=== PATIENT | male | born 1975 | race Caucasian/White ===

== ENCOUNTER 2019-01-03 06:52 | Day surgery (SDC) | payer OTHER ==
--- NOTE | 2019-01-01 15:29 | EKG ---
Test Date: 2019-01-01 Test Time: 12:47:05 Director Of Plant Operations: [employer] MEASUREMENT RESULTS: Intervals: Rate: 85 SC: 156 QRSD: 102 QT: 362 QTc: 430 [place]: P: 33 SC: 156 QRS: 39 T: 28 INTERPRETIVE STATEMENTS: Normal sinus rhythm Normal ECG Compared to ECG 06/07/2017 08:08:27 No significant changes Electronically Signed On 01-01-19 15:28:29 CDT by Reji Aggarwal
[2019-01-03] MEDS ORDERED: NA CHLORIDE 0.9% 1,000 ML ONE (07:37)
[2019-01-03] MEDS ORDERED: EPINEPHRINE/PF 1 MG/ML AMP ONE (07:40)
[2019-01-03] MEDS ORDERED: OXYMETAZOLINE HCL 0.05% 15ML NAS ONE (07:40)
[2019-01-03] MEDS ORDERED: PROPOFOL 200 MG/20 ML VIAL IV ONE (07:55)
[2019-01-03] MEDS ORDERED: LIDOCAINE 2% MPF 5 ML VIAL ONE (07:56)
[2019-01-03] MEDS ORDERED: GLYCOPYRROLATE 0.2 MG/ML SYR ONE (07:56)
[2019-01-03] MEDS ORDERED: ROCURONIUM 50 MG/5 ML VIAL IV ONE (07:57)
[2019-01-03] MEDS ORDERED: FENTANYL CITR 250 MCG/5 ML ONE (07:57)
[2019-01-03] MEDS ORDERED: ONDANSETRON 4 MG/2 ML VIAL ONE (07:58)
[2019-01-03] MEDS ORDERED: LIDOCAINE 1% W/EPI 1:100,000 MDV 20 ML VIAL ONE (07:59)
[2019-01-03] MEDS ORDERED: SUCCINYLCHOLINE 20 MG/ML (10 ML) IV ONE ×2 (08:01→08:21)
[2019-01-03] MEDS ORDERED: NEOSTIGMINE 1 MG/ML -10 ML VIAL ONE (08:11)
[2019-01-03] MEDS ORDERED: MIDAZOLAM HCL 2 MG/2 ML INJ ONE ×2 (08:59→09:02)
[2019-01-03] MEDS ORDERED: ALBUTEROL 2.5 MG/3 ML NEB SOL ONE (09:21)
--- NOTE | 2019-01-03 21:31 | OP ---
Date of Procedure: 01/03/2019 Surgeon: uXan Dickey MD Preoperative Diagnosis: Right vocal cord lesion. Postoperative Diagnosis: Right vocal cord lesion, pathology pending. Procedure: Direct laryngoscopy with telescope and excision of vocal cord tumor. Indication For Procedure: Mr. Tineo presented to the ENT clinic with multiple complaints including dysphonia. A flexible laryngoscopy revealed a round reddish pedunculated appearing mass on the anterior third of the right vocal fold. The risks, benefits, and alternatives to the procedure were discussed with the patient and his . He agreed to proceed. Description Of Procedure: The patient was brought to the operating room. He was placed under general anesthesia via oral endotracheal tube. He was intubated successfully using the glide scope. During intubation, his epiglottis was noted to be somewhat U shaped. The patient had limited neck extension. A plastic tooth guard was placed on his upper dentition and the Brian-Berci laryngoscope was used to perform a direct laryngoscopy. The patient's anatomy was difficult to identify in terms of the posterior and piriform sinus due to the patient's body habitus, morbid obesity and collapse of soft tissues. The vocal cords were identified by following the path of the endotracheal tube. Once the vocal cords were identified, the laryngoscope was placed into suspension. The posterior aspect of the vocal cord and the interarytenoid area was obscured by the endotracheal tube. Frothy secretions were suctioned from the endotracheal tube and secretions were suctioned. The anterior aspect of the larynx was better visualized by manual pressure on the larynx externally. Photo documentation of the lesion was then obtained. A large up-biting cup forceps was used to grasp the lesion at its base and it was carefully removed. An epinephrine-soaked pledget was applied to the vocal cord for several minutes to aid in hemostasis. After removal, the area was suctioned and photodocumentation was made of the left vocal cord at the prior site of the tumor. There was no gross residual tumor and the procedure was concluded. The laryngoscope was carefully removed. The mouth guard was removed and the patient was returned to care of Anesthesia for awakening and disposition. During awakening, the patient had significant coughing resulting in desaturations and he was lightly sedated to allow for better ventilation. The anesthesia staff opted to defer extubation to the PACU to allow resolution of sedation due to patient's high risk of obstruction and desaturation due to body habitus. MIKE/RUFUS Voice ID: [id number] Report ID: [id number] MTDOscar
== END 2019-01-03 11:30 | disposition home or self-care (01) ==
LOC: OR 06:52
PROVIDERS: ATTEND Otolaryngology
PROC: 0CBT8ZZ Excision of Right Vocal Cord, Via Natural or Artificial Opening Endoscopic (ICD-10-PCS; principal; 2019-01-03 08:15)
DX: J38.3 Other diseases of vocal cords (principal); E11.9 Type 2 diabetes mellitus without complications; I10 Essential (primary) hypertension; G47.33 Obstructive sleep apnea (adult) (pediatric); K21.9 Gastro-esophageal reflux disease without esophagitis; E78.00 Pure hypercholesterolemia, unspecified; E66.01 Morbid (severe) obesity due to excess calories; Z68.44 Body mass index [BMI] 60.0-69.9, adult; Z80.9 Family history of malignant neoplasm, unspecified; Z83.3 Family history of diabetes mellitus; Z82.49 Family history of ischemic heart disease and other diseases of the circulatory system
CPT/HCPCS: 93005; 82962; 88305; 31541; J2704; J2710; J0171; J0330; J2250 ×2; J3010; J7030; J2405

== ENCOUNTER 2020-09-08 10:44 | Emergency (ER) | payer SELFPAY ==
--- OUTSIDE RECORDS SUMMARY | 2020-09-08 10:48 | XMS REPORT | Continuity of Care Document ---
:1975 Author Organization [facility] t Address [address] [place] [address] Care Team Providers Name Role Phone Unavailable Unavailable Unavailable Payers Payer Name Policy Type Policy Number Effective Date Expiration Date S ource Problems This patient has no known problems. Allergies, Adverse Reactions, Alerts Allergy Allergy Status Severity Reaction(s) Onset Inactive Treating Comm ents Source Name Type Date Date Clinician No Known DA Active U [facility] 05-13 Allergie 00:00: s 00 No Known DA Active U [facility] Allergie 10-15 [facility] Medications Ordered Filled Start Stop Current Ordering Indication Dosage Frequency Signature Comments Components Source Medication Medication Date Date Medication? Clinician (SIG) Name Name Pantoprazol Pantoprazol Yes Kristin [address] [facility] Sodium e Sodium 6-15 Millender Manuela [facility] Meloxicam Meloxicam 2018- 2020- No Kristin [address] [facility] 1-14 08-10 [facility] Metoprolol Metoprolol Yes Kristin [address] [facility] Tartrate Tartrate Millender with food [facility] Pepcid Pepcid Yes Kristin not [facility] Millender defined [facility] Rosuvastati Rosuvastati Yes Kristin [address] [facility] n Calcium n Calcium Millender in evening [facility] Testosteron Testosteron Yes Kristin [address] [facility] Cypionate e Cypionate [facility]ender [facility] Testosteron Testosteron Yes Kristin INJECT 0.[address] [facility] e Cypionate e Cypionate Millender ML IN THE [facility] EVERY WEEK l [facility] Metformin Metformin Yes Kristin [address] [facility] HCl HCl Millender with a [facility] - meal [facility] Isosorbide Isosorbide Yes Kristin [address] [facility] Mononitrate Mononitrate Millender in the [facility] ER morning [facility] Lisinopril Lisinopril Yes Kristin [address] [facility] Millender [facility] Tramadol Tramadol 2019- No Kristin [address] HCl HCl 10-13 Millender as needed Luke s - 00:00 for pain [facility] :00 l [facility] Vital Signs Vital Name Observation Time Observation Value Comments Source 02 Sat by Pulse Oximetry 2020-05-20 11:27:37 96 /min BMI more than 35 2020-05-20 11:27:37 Y Body Mass Index 2020-05-20 11:27:37 62.7 Height 2020-05-20 11:27:37 180.34\S\71 Pulse Rate 2020-05-20 11:27:37 84 /min Respiratory Rate 2020-05-20 11:27:37 11 /min Weight 2020-05-20 11:27:37 052750.566\S\7200 02 Sat by Pulse Oximetry 2020-05-15 00:10:15 96 /min BMI more than 35 2020-05-15 00:10:15 Y Body Mass Index 2020-05-15 00:10:15 62.7 Height 2020-05-15 00:10:15 180.34\S\71 Pulse Rate 2020-05-15 00:10:15 84 /min Respiratory Rate 2020-05-15 00:10:15 11 /min Weight 2020-05-15 00:10:15 220438.566\S\7200 Body Mass Index 2020-05-14 08:37:43 62.7 Height 2020-05-14 08:37:43 180.34\S\71 Weight 2020-05-14 08:37:43 682345.566\S\7200 Body Mass Index 2020-05-14 07:11:43 62.7 Height 2020-05-14 07:11:43 180.34\S\71 Weight 2020-05-14 07:11:43 993944.566\S\7200 Body Mass Index 2020-05-14 07:03:32 62.7 Height 2020-05-14 07:03:32 180.34\S\71 Weight 2020-05-14 07:03:32 108291.566\S\7200 Body Mass Index 2020-05-14 07:00:28 62.7 Height 2020-05-14 07:00:28 180.34\S\71 Weight 2020-05-14 07:00:28 691217.566\S\7200 Body Mass Index 2020-05-14 05:57:42 62.7 Height 2020-05-14 05:57:42 180.34\S\71 Weight 2020-05-14 05:57:42 871938.566\S\7200 Body Mass Index 2020-05-13 16:05:48 62.7 Height 2020-05-13 16:05:48 180.34\S\71 Weight 2020-05-13 16:05:48 552528.566\S\7200 Body Mass Index 2020-05-13 16:05:17 62.7 Height 2020-05-13 16:05:17 180.34\S\71 Weight 2020-05-13 16:05:17 973771.566\S\7200 WEIGHT 2020-05-13 16:05:00 204.116844 kg HEIGHT 2020-05-13 16:05:00 180.34 cm Procedures This patient has no known procedures. Encounters Start End Encounter Admission Attending Care Care Encounter Source Date/Time Date/Time Type Type Clinicians Facility Department ID 2020-08-16 2020-08-16 [facility] [id number] 2020-07-19 2020-07-19 [facility] [id number] [facility] 2020-07-13 2020-07-13 [facility] [id number] [facility] 2020-06-21 2020-06-21 [facility] [id number] [facility] 2020-05-19 2020-05-19 [facility] [id number] [facility] 2020-05-06 2020-05-06 [facility] [id number] [facility] 2020-03-31 2020-03-31 [facility] [id number] [facility] 2020-03-22 2020-03-22 [facility] [id number] [facility] 2020-03-19 2020-03-19 [facility] [id number] [facility] 2020-03-15 2020-03-15 [facility] [id number] [facility] 2020-01-14 2020-01-14 Outpatient Miki Livingstont [id number] [facility] 08:59:00 08:59:00 [facility] 2019-10-20 2019-10-20 Outpatient Miki Nathan [id number] [facility] 22:06:00 22:06:00 [facility] 2019-10-20 2019-10-20 Outpatient Miki Livingstont [id number] [facility] [address] 09:40:00 09:40:00 [facility] Results Test Description Test Time Test Comments Results Result Comments Source TROPONIN I RAPID 2019-04-14 21:25:00 Test Item Value Reference Range Interpretation Comme nts TROPONIN I RAPID (test code = 0.00 ng/mL 0.00-0.08 N - The use of serial sampling and TROPIRAP) testing protoco l is a recommended pra ctice- An elevated tropon in level alone is often not suffi cient for diagnosis of my ocardial infarction. CBC W/AUTO [id number] 19:36:00 Test Item Value Reference Range Interpretation Comments WHITE BLOOD CELL (test 12.5 K/mm3 3.5-11.0 H code = WBC) RED BLOOD CELL (test 5.09 M/mm3 4.70-6.10 N code = RBC) HEMOGLOBIN (test code 13.2 G/DL 12.3-15.9 N = HGB) HEMATOCRIT (test code 41.2 % 35.8-46.7 N = HCT) MEAN CELL VOLUME (test 80.9 Fl 86.3-98.9 L code = MCV) MEAN CELL HGB (test 25.9 pg 28.9-34.4 L code = MCH) MEAN CELL HGB 32.0 G/DL 32.1-34.5 L CONCETRATION (test code = MCHC) RED CELL DISTRIBUTION 15.3 SD 11.5-14.5 H WIDTH (test code = RDW) PLATELET COUNT (test 315.0 K/mm3 150-450 N code = PLT) MEAN PLATELET VOLUME 10.90 fL 7.0-9.6 H (test code = MPV) NEUTROPHIL % (test 70.9 % 40-76 N code = NT%) LYMPHOCYTE % (test 20.2 % 20.5-51.1 L code = LY%) MONOCYTE % (test code 6.5 % 1.7-9.3 N = MO%) EOSINOPHIL % (test 2.2 % 0.0-6.0 N code = EO%) BASOPHIL % (test code 0.2 % 0.0-2.0 N = BA%) NEUTROPHIL # (test 8.89 K/mm3 1.8-7.6 H code = NT#) LYMPHOCYTE # (test 2.5 K/mm3 0.6-3.0 N code = LY#) MONOCYTE # (test code 0.8 K/mm3 0.2-1.5 N = MO#) EOSINOPHIL # (test 0.3 K/mm3 0.0-0.4 N code = EO#) BASOPHIL # (test code 0.0 K/mm3 0.0-0.2 N = BA#) MANUAL DIFF REQUIRED NO DIFF/SCN CRITERIA SLIDE R EVIEW (test code = MDIFF) CONSISTA NT WITH AUTO DIFFERENTIAL. COMPREHENSIVE METABOLIC [id number] 18:16:00 Test Item Value Reference Range Interpretation Comments SODIUM (test code = NA) 140 mmol/L 134-147 N POTASSIUM (test code = 3.7 mmol/L 3.4-5.0 N K) CHLORIDE (test code = 106 mmol/L 100-108 N CL) CARBON DIOXIDE (test 28 mmol/L 21-32 N code = CO2) ANION GAP (test code = 6.0 GAP calc 4.0-15.0 N GAP) GLUCOSE (test code = 86 MG/DL 70-110 N GLU) BLOOD UREA NITROGEN 11 MG/DL 7-18 N (test code = BUN) GLOMERULAR FILTRATION >=60 max estimate >60 RATE (test code = GFR) estGFR CREATININE (test code = 0.6 MG/DL 0.8-1.3 L CREAT) TOTAL PROTEIN (test code 7.7 G/DL 6.4-8.2 N = PROT) ALBUMIN (test code = 3.8 G/DL 3.4-5.0 N ALB) GLOBULIN (test code = 3.9 GM/dL GLOB) ALBUMIN/GLOBULIN RATIO 1.0 RATIO 1.2-2.2 L (test code = A/G) CALCIUM (test code = CA) 9.0 MG/DL 8.5-10.1 N BILIRUBIN TOTAL (test 0.50 MG/DL 0.2-1.2 N code = BILT) SGOT/AST (test code = 15 Unit/L 15-37 N AST) SGPT/ALT (test code = 29 Unit/L 12-78 N ALT) ALKALINE PHOSPHATASE 80 Unit/L 50-136 N TOTAL (test code = ALKP) RULE OUT KS [id number] 18:16:00 Test Item Value Reference Range Interpretation Comments CREATINE KINASE 122 Unit/L 26-192 N (CK) (test code = CK) TROPONIN-I (test < 0.015 NG/ML 0.000-0.045 N Negative: </= 0.045 code = TROPI) Positive: >/= 0.046 Correlation wit h serial results, other cardiac markers , and clinical findin gs is necessary to de termine the clinical significance of this result. Quantit ative results using different methodologies s hould not be compared to one another as nume rical results may ernesto yby method. NT PRO-BRAIN NATRIURETIC [id number] 18:16:00 Test Item Value Reference Range Interpretation Comments NT PRO-BRAIN NATRIURETIC PEPTI (test 53 PG/ML 0-100 N code = PROBNP) CBC W/AUTO [id number] 17:53:00 Test Item Value Reference Range Interpretation Comments WHITE BLOOD CELL (test code = 12.5 K/mm3 3.5-11.0 H WBC) RED BLOOD CELL (test code = RBC) 5.09 M/mm3 4.70-6.10 N HEMOGLOBIN (test code = HGB) 13.2 G/DL 12.3-15.9 N HEMATOCRIT (test code = HCT) 41.2 % 35.8-46.7 N MEAN CELL VOLUME (test code = 80.9 Fl 86.3-98.9 L MCV) MEAN CELL HGB (test code = MCH) 25.9 pg 28.9-34.4 L MEAN CELL HGB CONCETRATION (test 32.0 G/DL 32.1-34.5 L code = MCHC) RED CELL DISTRIBUTION WIDTH (test 15.3 SD 11.5-14.5 H code = RDW) PLATELET COUNT (test code = PLT) 315.0 K/mm3 150-450 N MEAN PLATELET VOLUME (test code = 10.90 fL 7.0-9.6 H MPV) NEUTROPHIL % (test code = NT%) % 40-76 N LYMPHOCYTE % (test code = LY%) % 20.5-51.1 L MONOCYTE % (test code = MO%) % 1.7-9.3 N EOSINOPHIL % (test code = EO%) % 0.0-6.0 N BASOPHIL % (test code = BA%) % 0.0-2.0 N NEUTROPHIL # (test code = NT#) K/mm3 1.8-7.6 H LYMPHOCYTE # (test code = LY#) K/mm3 0.6-3.0 N MONOCYTE # (test code = MO#) K/mm3 0.2-1.5 N EOSINOPHIL # (test code = EO#) K/mm3 0.0-0.4 N BASOPHIL # (test code = BA#) K/mm3 0.0-0.2 N MANUAL DIFF REQUIRED (test code = DIFF/SCN CRITERIA MDIFF) PROTHROMBIN [id number] 17:52:00 Test Item Value Reference Range Interpretation Comments PT PATIENT (test code = PTP) 13.0 SECONDS 9.3-12.9 H INTERNATIONAL NORMAL RATIO 1.13 INR Unit 0.8-1.2 N (test code = INR) - XR CHEST 1 [id number] 17:41:00 Name: GRIS BENITEZ [facility] : 1975 Age/S: 43 / M [id number] Unit #: [id number] Loc: [place] [address] Phys: Sanchez Nolen MD Acct: [id number] Dis Date: Status: PRE ER PHONE #: [phone] Exam Date: 04/14/2019 6974 FAX #: Reason: Chest Pain EXAMS: CPT: [id number] XR CHEST 1 V 21300 Fluoro Time: DAP (Gy m2): Air Kerma (mGy): EXAM: Portable chest one view. Location code:J9 HISTORY: Chest pain COMPARISON: 10/15/2014 COMMENT: . The lungs and pleural spaces are clear. Lungs are normally expanded. The aorta, pulmonary vasculature and mediastinum are within normal limits. Cardiac silhouette is normal in size and contour. Visualized skeletal structures are unremarkable. IMPRESSION: No active disease in the chest. at 1642 Reported and signed by: Master Mills M.D. CC: Stephie WALKER; Sanchez Nolen MD PAGE 1 Signed Report [facility] [place] [facility] 1975 Age/S: 43 / M [id number] Unit #: [id number] Loc: [place] [address] Phys: Sanchez Nolen MD Acct: [id number] Dis Date: Status: PRE ER PHONE #: [phone] Exam Date: 04/14/2019 1730 FAX #: Reason: Chest Pain EXAMS: CPT: [id number] XR CHEST 1 V 85270 Fluoro Time: DAP (Gy m2): Air Kerma (mGy): <Continued> Technologist: Stephie Reddy, RT(R) Trnscb Date/Time: 04/14/2019 (7164) [email or web address] Orig Print D/T: S: 04/14/2019 ([id number]) PAGE 2 Signed Report
--- NOTE | 2020-09-08 14:05 | ER ---
Nurse's Notes [facility] Name: Alana Tineo Age: 44 yrs Sex: Male : 1975 Arrival Date: 09/08/2020 Time: 10:49 Bed Waiting Private MD: Diagnosis: Presentation: 09/08 10:50 Chief complaint: Patient states: Dizziness and SOB with exertion x 1.5 weeks. ca1 Yesterday, started to cough up bloody mucous and last night was running a low grade fever. Coronavirus screen: Client denies travel out of the [place] in the last 14 days. cough unrelated to allergies, shortness of breath, Client presents with at least one sign or symptom that may indicate coronavirus-19. Standard/surgical mask placed on the client. Provider contacted for isolation considerations. The client reports previous COVID testing was negative. Date of collection: September 07, 2020. Ebola Screen: Patient negative for fever greater than or equal to 101.5 degrees Fahrenheit, and additional compatible Ebola Virus Disease symptoms Patient denies exposure to infectious person. Patient denies travel to an Ebola-affected area in the 21 days before illness onset. No symptoms or risks identified at this time. Initial Sepsis Screen: Does the patient meet any 2 criteria? No. Patient's initial sepsis screen is negative. Does the patient have a suspected source of infection? No. Patient's initial sepsis screen is negative. Risk Assessment: Do you want to hurt yourself or someone else? Patient reports no desire to harm self or others. Onset of symptoms was September 08, 2020. 10:50 Method Of Arrival: Ambulatory ca1 10:50 Acuity: DANA 3 ca1 Historical: - Allergies: 10:55 No Known Allergies; ca1 - Home Meds: 10:55 Lisinopril Oral [Active]; metoprolol tartrate 50 mg Oral tab 1 tab 2 times per day ca1 [Active]; metformin 1,000 mg Oral tr24 1 tab once daily [Active]; rosuvastatin oral oral [Active]; Celebrex Oral [Active]; aspirin 81 mg Oral TbEC 1 tab once daily [Active]; - PMHx: 10:55 Hypertension; Diabetes - NIDDM; High Cholesterol; ca1 - PSHx: 10:55 None; ca1 - Immunization history:: Client reports having NOT received the Covid vaccine. Flu vaccine is not up to date. - Social history:: Smoking status: Patient denies any tobacco usage or history of. Assessment: 14:03 Reassessment: called pt through phone pt states, "I left already and no am not coming ca1 back". Vital Signs: 10:50 BP 131 / 71; Pulse 90; Resp 18 S; Temp 98.3(TE); Pulse Ox 97% on R/A; Weight 217.72 kg ca1 (R); Height 6 ft. 0 in. (182.88 cm) (R); 10:50 Body Mass Index 65.10 (217.72 kg, 182.88 cm) ca1 ED Course: 10:49 Patient arrived in ED. am2 10:52 Triage completed. ca1 10:55 Arm band placed on right wrist. ca1 14:03 Patient's name was called from ER lobby. No response. Unable to locate patient. Will ca1 disposition as left without being seen by a provider. Administered Medications: No medications were administered Outcome: 14:04 Patient left the ED. ca1 Signatures: Marisela Martinez am2 Ekta Francois RN RN ca1 Corrections: (The following items were deleted from the chart) 10:55 10:50 Chief complaint: Patient states: Dizziness and SOB x 1.5 weeks. Yesterday, ca1 started to cough up bloody mucous and last night was running a low grade fever ca1
[2020-09-08 14:12] VITALS: BP 131/71; TEMP 98.3; O2SAT 97
== END 2020-09-08 14:04 | disposition left against medical advice (07) ==
LOC: ER 10:44
DX: Z02.9 Encounter for administrative examinations, unspecified (principal)
CPT/HCPCS: 99281